=== PATIENT | female | born 1990 | race African-American/Black ===

== ENCOUNTER 2016-03-28 05:38 | Emergency (ER) | payer SELFPAY ==
[2016-03-28 05:46] VITALS: RESP 18; TEMP 98.4
[2016-03-28] MEDS ORDERED: DEXAMETHASONE SOD PHOSPHATE 10 MG/ML 1 ML VIAL IM STA (05:51)
[2016-03-28] MEDS ORDERED: ACETAMINOPHEN TAB 500 MG TAB PO STA (05:51)
[2016-03-28] MEDS ORDERED: IBUPROFEN 800 MG TAB PO STA (05:51)
[2016-03-28] MEDS ORDERED: AZITHROMYCIN 500 MG TAB PO STA (05:51)
[2016-03-28] MEDS ORDERED: IPRATROPIUM-ALBUTEROL 3 ML NEB INHALATION STA ×2 (05:51→05:55)
[2016-03-28] MEDS ORDERED: ALBUTEROL NEB (CONC) 2.5 MG/0.5 ML INHALATION STA (05:56)
--- NOTE | 2016-03-28 06:07 | ED ---
General Adult HPI - General Chief complaint: Shortness of Breath Stated complaint: KENNEY, sleeplessness, unable to urinate Time Seen by Provider: 03/28/16 05:40 Source: patient, RN notes reviewed, old records reviewed Mode of arrival: ambulatory Limitations: no limitations - History of Present Illness Initial comments: This is a 26-year-old female here with cough congestion or severe shortness of breath. 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 Patient denies any complaints of similar issues. No chronic medical history, states she has quit smoking recently, increased cough and congestion Adore fears a travel history, no chest pain. Patient is to just generalized tenderness that occurred throughout her shift today at work and it progressively worsens or other day, she was trying to rest tonight and had trouble coughing and shortness of breath. No prior hospital admissions or visits for similar symptoms - Related Data Home Medications Medication Instructions Recorded Confirmed Amoxicillin 250 mg PO Q8H 07/23/15 07/23/15 Ibuprofen [Motrin] 800 mg PO Q8HR PRN 07/23/15 07/23/15 Previous Rx's Medication Instructions Recorded HYDROcodone/APAP 5-325MG [[place] 5] 1 each PO Q4HR PRN #20 tab 07/23/15 Allergies Allergy/AdvReac Type Severity Reaction Status Date / Time No Known Allergies Allergy Verified 03/28/16 05:46 Review of Systems ROS Statement: Those systems with pertinent positive or pertinent negative responses have been documented in the HPI. ROS Other: All systems not noted in ROS Statement are negative. Past Medical History Past Medical History: Asthma, GERD/Reflux Additional Past Medical History / Comment(s): obesity History of Any Multi-Drug Resistant Organisms: None Reported Past Surgical History: No Surgical Hx Reported Past Psychological History: No Psychological Hx Reported Smoking Status: Former smoker Past Alcohol Use History: None Reported Past Drug Use History: None Reported General Exam Limitations: no limitations General appearance: alert, anxious, obese Head exam: Present: atraumatic, normocephalic, normal inspection Eye exam: Present: normal appearance, PERRL, EOMI. Absent: scleral icterus, conjunctival injection, periorbital swelling ENT exam: Present: normal exam, mucous membranes moist Neck exam: Present: normal inspection. Absent: tenderness, meningismus, lymphadenopathy Respiratory exam: Present: normal lung sounds bilaterally, wheezes. Absent: respiratory distress, rales, rhonchi, stridor Cardiovascular Exam: Present: regular rate, normal rhythm, normal heart sounds. Absent: systolic murmur, diastolic murmur, rubs, gallop, clicks GI/Abdominal exam: Present: soft, normal bowel sounds. Absent: distended, tenderness, guarding, rebound, rigid Extremities exam: Present: normal inspection, full ROM, normal capillary refill. Absent: tenderness, pedal edema, joint swelling, calf tenderness Back exam: Present: normal inspection Neurological exam: Present: alert, oriented X3, CN II-XII intact Psychiatric exam: Present: normal affect, normal mood Skin exam: Present: warm, dry, intact, normal color. Absent: rash Course Vital Signs 03/28/16 03/28/16 05:44 06:03 Temperature 98.4 F Pulse Rate 90 84 Respiratory 18 Rate Blood Pressure 142/70 O2 Sat by Pulse 99 Oximetry - Reevaluation(s) Reevaluation #1: 03/28/16 06:06 Patient symptoms are improved with breathing treatment Medical Decision Making - Medical Decision Making 26-year-old year for evaluation if shortness of breath, no fevers. X-rays negative. Patient with bronchitis, we'll treat her with an discharged home - Radiology Data Radiology results: report reviewed (Chest x-ray negative for acute disease), image reviewed Disposition Clinical Impression: Acute bronchitis Disposition: HOME SELF-CARE Condition: Good Instructions: Acute Bronchitis (ED)
--- NOTE | 2016-03-28 06:51 | XR ---
EXAMINATION TYPE: XR chest 2V DATE OF EXAM: 03/28/2016 6:46 AM COMPARISON: None. HISTORY: Shortness of breath TECHNIQUE: Frontal and lateral views of the chest are obtained. FINDINGS: There is no focal air space opacity, pleural effusion, or pneumothorax seen. The cardiac silhouette size is within normal limits. The osseous structures are intact. IMPRESSION: No acute cardiopulmonary process.
[2016-03-28 07:01] VITALS: BP 130/72; PULSE 70
== END 2016-03-28 07:02 | disposition home or self-care (01) ==
LOC: EC 05:38
DX: J20.9 Acute bronchitis, unspecified (principal); E66.9 Obesity, unspecified; Z87.891 Personal history of nicotine dependence
CPT/HCPCS: 99284; 96372; 94640; 71020; J1100

== ENCOUNTER 2016-08-13 19:47 | Emergency (ER) | payer OTHER ==
[2016-08-13 20:05] VITALS: BP 141/102; PULSE 79; RESP 18; TEMP 97.4
[2016-08-13] MEDS ORDERED: HYDROcodone/APAP 5-325MG 1 EACH TAB PO STA (20:37)
--- NOTE | 2016-08-13 20:43 | ED ---
ENT HPI - General Chief complaint: Dental/Oral Stated complaint: dental & jaw pain Time Seen by Provider: 08/13/16 20:25 Source: patient, RN notes reviewed Mode of arrival: ambulatory Limitations: no limitations - History of Present Illness Initial comments: Patient is a 26-year-old female presents to the emergency room for evaluation of dental pain. Patient states she's been having right bottom wisdom tooth pain for the past few weeks. Patient states she went to a dentist about 3-4 weeks ago and was told that she cannot have the tooth extracted until she is approved by her insurance. Patient states over the past week she's been having worsening pain. Patient states the pain was so severe that 2 days ago she tried to take pliers to remove her wisdom tooth. Patient states she was unsuccessful and has been having worsening pain ever since. Patient states she has been taking 800 mg of ibuprofen with no relief of symptoms. Patient states she's having pain on the right side of her lower jaw. Patient denies fevers or chills. Patient denies trouble swallowing. Patient denies shortness of breath. Patient states she's having severe 10 out of 10 pain. Patient states she is still waiting to hear from the dentist to be approved for her extraction. Patient denies taking any antibiotics. Patient denies ear pain. - Related Data Home Medications Medication Instructions Recorded Confirmed Amoxicillin 250 mg PO Q8H 07/23/15 07/23/15 Ibuprofen [Motrin] 800 mg PO Q8HR PRN 07/23/15 07/23/15 Previous Rx's Medication Instructions Recorded HYDROcodone/APAP 5-325MG [[place] 5] 1 each PO Q4HR PRN #20 tab 07/23/15 Albuterol Sulfate [Proair Hfa] 1 - 2 puff INHALATION Q4H #1 03/28/16 inhaler predniSONE 50 mg PO DAILY #5 tab 03/28/16 HYDROcodone/APAP 5-325MG [[place] 1 tab PO Q6HR PRN #20 tab 08/13/16 5-325] Ibuprofen [Motrin] 800 mg PO Q6HR PRN #30 tab 08/13/16 Penicillin V Potassium [Pen Vee K] 500 mg PO QID 10 Days 08/13/16 Allergies Allergy/AdvReac Type Severity Reaction Status Date / Time No Known Allergies Allergy Verified 07/02/17 20:05 Review of Systems ROS Statement: Those systems with pertinent positive or pertinent negative responses have been documented in the HPI. ROS Other: All systems not noted in ROS Statement are negative. Past Medical History Past Medical History: Asthma, GERD/Reflux Additional Past Medical History / Comment(s): obesity History of Any Multi-Drug Resistant Organisms: None Reported Past Surgical History: No Surgical Hx Reported Past Psychological History: No Psychological Hx Reported Smoking Status: Former smoker Past Alcohol Use History: None Reported Past Drug Use History: None Reported General Exam - General Exam Comments Initial Comments: sitting in exam room, no acute distress. Limitations: no limitations General appearance: alert, in no apparent distress Head exam: Present: atraumatic, normocephalic, normal inspection Eye exam: Present: normal appearance Expanded Mouth exam: Present: normal external inspection Teeth exam: Present: dental caries, dental tenderness # (32, with erosion) Throat exam: normal inspection Neck exam: Present: normal inspection, full ROM. Absent: tenderness, lymphadenopathy Respiratory exam: Present: normal lung sounds bilaterally. Absent: respiratory distress Cardiovascular Exam: Present: regular rate, normal rhythm, normal heart sounds Extremities exam: Present: normal inspection Back exam: Present: normal inspection Neurological exam: Present: alert, oriented X3, CN II-XII intact, normal gait Psychiatric exam: Present: normal affect, normal mood Skin exam: Present: warm, dry, intact, normal color. Absent: rash Course Vital Signs 08/13/16 20:02 Temperature 97.4 F L Pulse Rate 79 Respiratory 18 Rate Blood Pressure 141/102 O2 Sat by Pulse 100 Oximetry Medical Decision Making - Medical Decision Making Patient is a 26-year-old female presents to the emergency room for evaluation of dental pain on tooth #32. Patient states that she's been having pain there for the past few weeks and is still waiting for her dental insurance to approve extraction. Patient states because of worsening pain she attempted to remove the tooth with pliers about 2 days ago. Patient was unsuccessful and is having worsening pain. Patient does have an eroded tooth over tooth #32. No mouth floor tenderness. Patient has no trouble swallowing. No fevers or chills. Patient will be placed on prophylactic antibiotics and will be sent home with pain medications. Patient states she understands everything that was discussed with her. Return parameters discussed. Case discussed with Dr. Boone. - Radiology Data Radiology results: report reviewed, image reviewed Disposition Clinical Impression: Pain, dental Disposition: HOME SELF-CARE Condition: Good Instructions: Dental Caries (ED), Toothache (ED) Additional Instructions: Please follow up with a dentist. If you do not have a dentist, you may contact [facility]. Phone number is [phone] for existing clients. For new clients you may call [phone]. Another option is you have is the [facility] dental school. Phone number is [phone]. Medications as directed. [place] gargles. Cold fluids can sometimes help with pain as well. Return to the Emergency Room for any worsening or changing symptoms. Use cold compresses to the outside of the face. Prescriptions: HYDROcodone/APAP 5-325MG [[place] 5-325] 1 tab PO Q6HR PRN #20 tab PRN Reason: Pain Ibuprofen [Motrin] 800 mg PO Q6HR PRN #30 tab PRN Reason: Pain Penicillin V Potassium [Pen Vee K] 500 mg PO QID 10 Days Referrals: Ab Colón DDS [STAFF PHYSICIAN] - 1-2 days Time of Disposition: 20:39
== END 2016-08-13 21:21 | disposition home or self-care (01) ==
LOC: EC 19:47
DX: K08.89 Other specified disorders of teeth and supporting structures (principal); K02.9 Dental caries, unspecified; E66.9 Obesity, unspecified; Z87.891 Personal history of nicotine dependence
CPT/HCPCS: 99282

== ENCOUNTER 2016-08-26 01:09 | Emergency (ER) | payer OTHER ==
[2016-08-26 01:24] VITALS: BP 132/61; PULSE 82; RESP 18; TEMP 98.6
--- NOTE | 2016-08-26 01:38 | ED ---
General Adult HPI - General Chief complaint: Eye Problems Stated complaint: eye problems Time Seen by Provider: 08/26/16 01:28 Source: patient Mode of arrival: ambulatory Limitations: no limitations - History of Present Illness Initial comments: This 26-year-old Afro-[place] female presents with a complaint of bilateral eye redness and drainage. This apparently started approximately 2 days ago. She has had a greenish drainage. She denies any eye injuries. She is unsure if this could be related to eye ALLERGIES. She denies any problems with vision. She further relates that she fell down 7 steps approximately 2 days ago and now is having back pain which is in her lower thoracic and upper lumbar region. She states that it is worse with any significant movement. It seems be worse when she is at work. No other complaints or modifying factors. No bowel or bladder abnormalities. No fevers or chills. - Related Data Previous Rx's Medication Instructions Recorded Cyclobenzaprine [Flexeril] 10 mg PO TID PRN #15 tab 08/26/16 Ibuprofen [Motrin] 800 mg PO Q8H PRN #20 tab 08/26/16 Olopatadine HCl [Patanol] 1 drop OPHTHALMIC BID #1 bottle 08/26/16 Sulfacetamide 10% Ophth Soln 1 drops BOTH EYES QID #5 ml 08/26/16 [Ble[place]-10] Allergies Allergy/AdvReac Type Severity Reaction Status Date / Time No Known Allergies Allergy Verified 08/26/16 01:24 Review of Systems ROS Statement: Those systems with pertinent positive or pertinent negative responses have been documented in the HPI. ROS Other: All systems not noted in ROS Statement are negative. Past Medical History Past Medical History: Asthma, GERD/Reflux Additional Past Medical History / Comment(s): obesity History of Any Multi-Drug Resistant Organisms: None Reported Past Surgical History: No Surgical Hx Reported Past Psychological History: No Psychological Hx Reported Smoking Status: Current some day smoker Past Alcohol Use History: None Reported Past Drug Use History: None Reported General Exam Limitations: no limitations General appearance: alert, in no apparent distress Eye exam: Present: normal appearance, PERRL, EOMI. Absent: scleral icterus, conjunctival injection, nystagmus, periorbital swelling, periorbital tenderness Pupils: Present: normal accommodation. Absent: unequal Extremities exam: Present: normal inspection, full ROM. Absent: tenderness Back exam: Present: normal inspection, full ROM, tenderness (There is some mild tenderness present to the bilateral paralumbar an. Thoracic musculature in the inferior thoracic and upper lumbar region.). Absent: muscle spasm, paraspinal tenderness, vertebral tenderness Neurological exam: Present: alert, oriented X3, normal gait. Absent: motor sensory deficit Psychiatric exam: Present: normal affect, normal mood Skin exam: Present: intact. Absent: rash Course Vital Signs 08/26/16 01:20 Temperature 98.6 F Pulse Rate 82 Respiratory 18 Rate Blood Pressure 132/61 O2 Sat by Pulse 99 Oximetry Medical Decision Making - Medical Decision Making The patient was seen and examined. All diagnostics are reviewed. X-rays were ordered of the lumbar and thoracic spine but she refused the x-rays. Is felt that she may have a slight back strain. It is also felt as though she could have either an ALLERGIC versus a infectious conjunctivitis which appears quite minimal. There is no current identified drainage or conjunctival erythema noted. She is stating that she is in a significant amount of pain on recheck but his barely waking up to talk as she is sleeping. Is felt as though she is stable for discharge and leaves in no distress. Disposition Clinical Impression: Conjunctivitis, Back strain Disposition: HOME SELF-CARE Instructions: Low Back Strain (ED), Conjunctivitis (ED) Prescriptions: Cyclobenzaprine [Flexeril] 10 mg PO TID PRN #15 tab PRN Reason: Pain Ibuprofen [Motrin] 800 mg PO Q8H PRN #20 tab PRN Reason: Pain Olopatadine HCl [Patanol] 1 drop OPHTHALMIC BID #1 bottle Sulfacetamide 10% Ophth Soln [Bleph-10] 1 drops BOTH EYES QID #5 ml Referrals: Tyrone Olivares MD [Primary Care Provider] - 1-2 days Time of Disposition: 02:28
== END 2016-08-26 02:43 | disposition home or self-care (01) ==
LOC: EC 01:09
DX: S39.012A Strain of muscle, fascia and tendon of lower back, initial encounter (principal); S29.012A Strain of muscle and tendon of back wall of thorax, initial encounter; H10.9 Unspecified conjunctivitis; E66.9 Obesity, unspecified; Z68.43 Body mass index [BMI] 50.0-59.9, adult; F17.200 Nicotine dependence, unspecified, uncomplicated; W10.9XXA Fall (on) (from) unspecified stairs and steps, initial encounter
CPT/HCPCS: 99283

== ENCOUNTER 2016-10-04 13:19 | Emergency (ER) | payer OTHER ==
[2016-10-04] MEDS ORDERED: SODIUM CHLORIDE 0.9% 1,000 ML IV ONE (14:00)
--- NOTE | 2016-10-04 14:17 | ED ---
Extremity Problem HPI - General Chief complaint: Extremity Problem,Nontraumatic Stated complaint: fluid retention Time Seen by Provider: 10/04/16 13:34 Source: patient, RN notes reviewed, old records reviewed Mode of arrival: ambulatory Limitations: no limitations - History of Present Illness Initial comments: This is a 26-year-old female presents emergency Department chief complaint of bilateral lower extremity swelling for the past few days. Patient reports she' s also had significant cramping over her legs. She reports she is currently living in a car, and is not able to move her legs frequently. Patient states that she is concerned she may have a blood clot. She reports no significant redness to the legs. Patient states that she has no history of hypertension denies any other medical history. 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 Denies number for tingling down her legs. - Related Data Previous Rx's Medication Instructions Recorded Hydrochlorothiazide 12.5 mg PO BID #20 capsule 10/04/16 Allergies Allergy/AdvReac Type Severity Reaction Status Date / Time No Known Allergies Allergy Verified 10/04/16 14:09 Review of Systems ROS Statement: Those systems with pertinent positive or pertinent negative responses have been documented in the HPI. ROS Other: All systems not noted in ROS Statement are negative. Past Medical History Past Medical History: Asthma, GERD/Reflux Additional Past Medical History / Comment(s): obesity History of Any Multi-Drug Resistant Organisms: None Reported Past Surgical History: No Surgical Hx Reported Past Psychological History: Anxiety, Depression Smoking Status: Current every day smoker Past Alcohol Use History: None Reported Past Drug Use History: None Reported General Exam - General Exam Comments Initial Comments: This 26-year-old female. No acute distress. Limitations: no limitations General appearance: alert, in no apparent distress Head exam: Present: atraumatic, normocephalic, normal inspection Eye exam: Present: normal appearance, PERRL, EOMI. Absent: scleral icterus, conjunctival injection, periorbital swelling ENT exam: Present: normal exam, mucous membranes moist Neck exam: Present: normal inspection. Absent: tenderness, meningismus, lymphadenopathy Respiratory exam: Present: normal lung sounds bilaterally. Absent: respiratory distress, wheezes, rales, rhonchi, stridor Cardiovascular Exam: Present: regular rate, normal rhythm, normal heart sounds. Absent: systolic murmur, diastolic murmur, rubs, gallop, clicks GI/Abdominal exam: Present: soft, normal bowel sounds. Absent: distended, tenderness, guarding, rebound, rigid Extremities exam: Present: normal inspection, full ROM, normal capillary refill. Absent: tenderness, pedal edema, joint swelling, calf tenderness Back exam: Present: normal inspection Neurological exam: Present: alert, oriented X3, CN II-XII intact Psychiatric exam: Present: normal affect, normal mood Skin exam: Present: warm, dry, intact, normal color. Absent: rash Course Vital Signs 10/04/16 10/04/16 13:29 15:35 Temperature 97.8 F 98.0 F Pulse Rate 90 68 Respiratory 20 14 Rate Blood Pressure 127/67 130/65 O2 Sat by Pulse 100 100 Oximetry Medical Decision Making - Medical Decision Making 36 showed FEMA increased bilateral lower extremity swelling for the past few days. She also reports significant cramping. She has been living in a car and states that she's been very crampy. This patient does have significant bilateral lowers extremity swelling. 2+ pedal edema. Patient did receive some blood work which was negative for any elected abnormality's. She did receive a liter of normal saline. Patient ultrasound was negative for blood clot. Patient will be started on a short course of HCTZ for peripheral edema, discussed that she needs follow-up with primary care provider. Discussed that she can wear compression socks as well as elevate her legs. Patient agrees to treatment plan will comply. Return parameters were discussed. - Lab Data Result diagrams: 10/04/16 14:17 10/04/16 14:17 Lab Results 10/04/16 10/04/16 Range/Units 14:17 14:17 WBC 5.4 (3.8-10.6) k/uL RBC 4.25 (3.80-5.40) m/uL Hgb 12.6 (11.4-16.0) gm/dL Hct 39.9 (34.0-46.0) % MCV 94.0 (80.0-100.0) fL MCH 29.7 (25.0-35.0) pg MCHC 31.6 (31.0-37.0) g/dL RDW 14.1 (11.5-15.5) % Plt Count 359 (150-450) k/uL Neutrophils % 65 % Lymphocytes % 21 % Monocytes % 6 % Eosinophils % 4 % Basophils % 1 % Neutrophils # 3.6 (1.3-7.7) k/uL Lymphocytes # 1.1 (1.0-4.8) k/uL Monocytes # 0.3 (0-1.0) k/uL Eosinophils # 0.2 (0-0.7) k/uL Basophils # 0.1 (0-0.2) k/uL Sodium 139 (137-145) mmol/L Potassium 3.9 (3.5-5.1) mmol/L Chloride 106 (98-107) mmol/L Carbon Dioxide 27 (22-30) mmol/L Anion Gap 6 mmol/L BUN 9 (7-17) mg/dL Creatinine 0.80 (0.52-1.04) mg/dL Est GFR (MDRD) Af Amer >60 (>60 ml/min/1.73 sqM) Est GFR (MDRD) Non-Af >60 (>60 ml/min/1.73 sqM) Glucose 138 H (74-99) mg/dL Calcium 9.0 (8.4-10.2) mg/dL - Radiology Data Radiology results: report reviewed Bilateral lower extremity negative for DVT. Disposition Clinical Impression: Dependent edema Disposition: HOME SELF-CARE Condition: Good Instructions: Edema (ED) Additional Instructions: Patient is to rest, and elevate extremities. Patient is to avoid a diet full of salt. Patient remain hydrated. Return to the emergency department if any alarming signs or symptoms occur. Prescriptions: Hydrochlorothiazide 12.5 mg PO BID #20 capsule Referrals: Tyrone Olivares MD [Primary Care Provider] - 1-2 days Time of Disposition: 15:32
[2016-10-04 14:35] LABS: Basophils # (A) 0.1 k/uL (0-0.2); Basophils % (A) 1 %; CH 30.4; CHCM 32.5; Eosinophils # (A) 0.2 k/uL (0-0.7); Eosinophils % (A) 4 %; HCT 39.9 % (34.0-46.0); HDW 2.41; HGB 12.6 gm/dL (11.4-16.0); Luc # (Auto) 0.11; Luc % (Auto) 2; Lymphocytes # (A) 1.1 k/uL (1.0-4.8); Lymphocytes % (A) 21 %; MCH 29.7 pg (25.0-35.0); MCHC 31.6 g/dL (31.0-37.0); Mean Platelet Volume 7.3; Monocytes # (A) 0.3 k/uL (0-1.0); Monocytes % (A) 6 %; Neutrophils # (A) 3.6 k/uL (1.3-7.7); Neutrophils % (A) 65 %; RBC 4.25 m/uL (3.80-5.40); RDW 14.1 % (11.5-15.5); WBC 5.4 k/uL (3.8-10.6); WBC (Perox) 5.42
[2016-10-04 14:41] LABS: Anion Gap 6 mmol/L; Blood Urea Nitrogen 9 mg/dL (7-17); Carbon Dioxide 27 mmol/L (22-30); Chloride 106 mmol/L (98-107); Glucose 138 mg/dL (74-99); Non-African American GFR(MDRD) >60 (>60 ml/min/1.73 sqM); Potassium 3.9 mmol/L (3.5-5.1); Sodium 139 mmol/L (137-145)
[2016-10-04] MEDS ORDERED: HYDROCHLOROTHIAZIDE 25 MG TAB PO STA (15:10)
--- NOTE | 2016-10-04 15:15 | US ---
EXAMINATION TYPE: US venous doppler duplex LE DATE OF EXAM: 10/04/2016 3:05 PM COMPARISON: NONE CLINICAL HISTORY: Swelling. Difficult exam due to patient body habitus- 372lbs SIDE PERFORMED: Bilateral TECHNIQUE: The lower extremity deep venous system is examined utilizing real time linear array sonog amanuel with graded compression, doppler sonography and color-flow sonography. VESSELS IMAGED: External Iliac Vein (EIV) Common Femoral Vein Deep Femoral Vein Greater Saphenous Vein * Femoral Vein Popliteal Vein Small Saphenous Vein * Proximal Calf Veins (* superficial vessels) Right Leg: Appears negative for DVT Left Leg: Appears negative for DVT Grayscale, color doppler, spectral doppler imaging performed of the deep veins of the lower extremiti es. There is normal flow, compressibility, vascular waveforms. IMPRESSION: No sonographic evidence of deep venous thrombosis within either lower extremity.
[2016-10-04 15:36] VITALS: BP 130/65; PULSE 68; RESP 14; TEMP 98
== END 2016-10-04 15:50 | disposition home or self-care (01) ==
LOC: EC 13:19
DX: R60.9 Edema, unspecified (principal); M79.604 Pain in right leg; M79.605 Pain in left leg; E66.9 Obesity, unspecified; F17.200 Nicotine dependence, unspecified, uncomplicated; Z68.43 Body mass index [BMI] 50.0-59.9, adult
CPT/HCPCS: 36415; 80048; 85025; 93970; 96360; 99284